=== PATIENT | female | born 1960 | race Caucasian/White ===

== ENCOUNTER → 2017-03-14 | Day surgery (SDC) | payer MEDICAID ==
[~2017-03-14] VITALS: Ht 157.5 cm; Wt 104.5 kg
[~2017-03-14] MED LIST: ALBU2TAB4 PO; ALBU6.7H INH; BUPIVACAINE HCL PF 0.5% 30 ML VIAL ONE; CANA300T PO; CYMB30CA PO; DEXT 5%-NACL 0.45% 1000 ML INJ 1,000 ML IV SCH; FENO145T2 PO; FLUT1INH INH; GLIP5TAB8 PO; HYDR-3133 PO; IBUP800T23 PO; LACTATED RINGER'S 1000 ML INJ 1,000 ML IV ONE; LACTATED RINGER'S 1000 ML INJ 1,000 ML ONE; LANTUS2P; LISI-519 PO; LURA40 PO; MIDAZOLAM HCL 2 MG/2 ML VIAL ONE; MONT10TA4 PO; NRDRIP; NYST15T TOPICAL; NYST500000 PO; OMEP20TA PO; ONDA1TAB16; ONDANSETRON HCL 4 MG/2 ML VIAL IV PUSH ONE; POVIDONE IODINE 10% OINT 1 PACKET TOPICAL ONE; PRAV10TA PO; PROPOFOL 200 MG/20 ML AMP IV ONE; SODIUM CHLORIDE 0.9% FLUSH 5 ML FLUSH IVF PRN; SODIUM CHLORIDE 0.9% FLUSH 5 ML FLUSH IVF SCH; TRAZ1TAB45 PO; ceFAZolin 2 GM PREMIX 50 ML ONE; fentaNYL CITRATE 250 MCG/5 ML AMP ONE
[2017-03-14 06:30] VITALS: BP 144/82; PULSE 61; RESP 16; TEMP 97.7; O2SAT 97
[2017-03-14 07:02] LABS: HEMATOCRIT 44.4 % (35.0-46.0); MEAN CELL VOLUME 79.8 FL (80.0-100.0); MEAN CORPUSCULAR HEMOGLOBIN 26.1 PG (27.0-34.0); MEAN CORPUSCULAR HGB CONC 32.7 % (32.0-36.0); PLATELET COUNT 250 TH/MM3 (150-450); RED BLOOD COUNT 5.56 MIL/MM3 (4.00-5.30); RED CELL DISTRIBUTION WIDTH 12.4 % (11.6-17.2); REVIEW FLAG FINAL; WHITE BLOOD COUNT 7.7 TH/MM3 (4.0-11.0)
--- NOTE | 2017-03-14 08:04 | HP.UPD ---
H&P Update Date: March 14, 2017 Note The Pre-Admit History and Physical Examination regarding the above named patient was reviewed (including, but not limited to, vital signs, medications, allergies, co-morbid conditions), and upon re-examination it is noted that: Indicated with "X" x - the patient's condition has not significantly changed since the last examination. [] - the patient's condition has changed since the last examination. Changes: Shaunna Antonio MD March 14, 2017 08:02
--- NOTE | 2017-03-14 09:48 | HHI.PR ---
Immediate Post Op Note Procedure Date: March 14, 2017 Pre Op Diagnosis: (1) Carpal tunnel syndrome Post Op Diagnosis: (1) Carpal tunnel syndrome Surgeon: Shaunna Antonio Assistant Professor Of Life Sciences(s): None. Procedure: Open release of the right carpal tunnel. Application of Nerve Wrap to the Median nerve. Anesthesia: General Drains: None Tourniquet time (min at mmHg) 54 minutes at 220 mm Hg. Patient to: PACU Patient Condition: Good Implant/Devices: SEE IMPLANT LOG (if applicable) Date/Time of Procedure: SEE SURGICAL CARE RECORD Shaunna Antonio MD March 14, 2017 09:48
[2017-03-14 10:45] VITALS: BP 144/80; PULSE 70; RESP 16; TEMP 98.7; O2SAT 95
--- NOTE | 2017-03-14 19:00 | MP ---
cc: MUNA KIDD MD DATE OF SURGERY 03/14/17 PREOPERATIVE DIAGNOSIS Recurrent right carpal tunnel syndrome. POSTOPERATIVE DIAGNOSIS Recurrent right carpal tunnel syndrome. PROCEDURE 1. Release of the right carpal tunnel 2. Application of nerve wrap. ANESTHESIA General SURGEON Johny Kidd MD INDICATIONS A 56-year-old female with recurrent right carpal tunnel syndrome. FINDINGS There was a significant nerve compression as well as scar tissue around the nerve. At the completion of the procedure, the nerve had been released, scar tissue removed and a nerve wrap placed around the nerve. TOURNIQUET TIME 54 minutes. PROCEDURE IN DETAIL The patient was seen preoperatively where the site and side were identified and marked. The patient was then taken to the operating room, placed in a supine position. Her identity was checked against the arm band and the consent form, site and side confirmed, time-out called prior to beginning the procedure. The right upper extremity was prepped with Hibiclens and draped in the usual sterile fashion. The area to be incised was outlined with a marking pen as a longitudinal incision just to the ulnar side of the midline. The arm was exsanguinated and the tourniquet inflated to 220 mmHg. Bupivacaine 0.5% plain was used to make a median nerve block. A 15 blade was then used to make the incision down through the skin down to the subcutaneous tissue down to the palmar fascia. Distally a small hole was poked in the palmar fascia and, using the ulnar artery as a guide, the Guyon's canal was released. The ulnar artery and nerve were retracted ulnarly. The median nerve retracted medially. Using the flexor tendon to the ring finger as a guide, the transverse carpal ligament was divided. Once the forearm fascia was reached, the scissor was kept in slightly open position and using the push technique forearm fascia was divided for several centimeters into the distal forearm. The nerve was then carefully from the roof of the carpal tunnel. The motor branch was identified and protected. The adhesions were lysed. The nerve itself did have a significant amount of scar tissue around it and this was lysed. Once this was completed, a nerve wrap was placed around using Integra 5 mm nerve wrap. It was sewn together with 8-0 Ethilon suture material and then the seam was placed on the dorsal surface of the nerve. The wound was then irrigated with saline copiously. Additional bupivacaine was injected into the cut surfaces and the wound was closed with 5-0 nylon suture material. Tourniquet was released after 54 minutes of tourniquet time. Pressure was applied. After several minutes, there was no evidence of any oozing and a dressing was applied using povidone-iodine ointment, Adaptic, Telfa, 4x4s and hand wrap. The patient was then taken from the operating room to the recovery room in satisfactory condition having tolerated procedure well. Postoperative instructions include keeping the arm elevated, keeping it clean and dry and returning next week for follow up. She was given a prescription for ibuprofen 800 mg every 8 hours as needed for pain, 40 dispensed. MD CESAR Dong/ /9:52 AM /6:53 PM [email or web address]
--- NOTE | 2017-03-15 09:46 | EKG ---
Date Performed: 03/14/2017 Time Performed: 07:23:18 PTAGE: 56 years EKG: Sinus bradycardia. Poor R wave progression - probable normal variant Borderline ECG NO PREVIOUS TRACING DOCTOR: Luis Dillon Interpretating Date/Time 03/15/2017 09:44:46
== END | disposition home or self-care (01) ==
LOC: PHSDC 06:15
PROVIDERS: ATTEND Specialist
DX: G56.01 Carpal tunnel syndrome, right upper limb (principal); R00.1 Bradycardia, unspecified; E11.9 Type 2 diabetes mellitus without complications; Z79.4 Long term (current) use of insulin
CPT/HCPCS: 01810; 36415; 64721; 82948; 85027; 93005; C9353; J0690; J2250; J2405; J3010; J7120